=== PATIENT | female | born 1960 | race Caucasian/White ===

== ENCOUNTER 2021-05-04 14:00 | Outpatient (RCR) | payer BC, SELFPAY | END 2021-09-21 12:52 | disposition home or self-care (01) | LOC: HO.PTWFD 14:00 | PROVIDERS: Visit Provider Orthopaedic Surgery | DX: Z96.652 Presence of left artificial knee joint (principal) | CPT/HCPCS: 97110; 97140; 97161 ==

== ENCOUNTER 2021-05-25 14:00 | Outpatient (RCR) | payer BC, SELFPAY ==
[2021-05-25 14:07] VITALS: BP 122/60; PULSE 93; O2SAT 97
== END 2021-09-21 14:17 | disposition home or self-care (01) ==
LOC: HO.PTWFD 14:00
PROVIDERS: Visit Provider Internal Medicine
DX: R42 Dizziness and giddiness (principal)
CPT/HCPCS: 95992; 97161; 97535

== ENCOUNTER 2023-09-24 11:10 | Outpatient (AMB) | payer BC, SELFPAY ==
--- NOTE | 2023-09-24 11:27 | MHC.OFFWIV ---
Intake Vital Signs 09/24/23 11:28 Height 5 ft 2 in Weight 179 lb 6 oz BMI 32.8 BP 130/74 Blood Pressure Location Lt brachial Position Sitting Pulse 70 Pulse Source Pulse Oximeter Pulse Oximetry (%) 95 Oxygen Delivery Method Room Air Intake Visit Reasons: ? thrush Intake Note: patient is here today for possible thrush, symptoms of burning and dry mouth. Patient Tobacco Use Status: Former Tobacco user Information Technology Security Analyst Required: No Neurological Surgery Teacher: Not Required per policy Accompanied by: Self / Same As Patient Allergies acetaminophen [From Vicodin] Adverse Reaction (Intermediate, Verified 09/24/23 12:06) Rash hydrocodone [From Vicodin] Adverse Reaction (Intermediate, Verified 09/24/23 12:06) Rash Medication List - Last Reconciled 09/24/23 by Liza Garces, MAINTENANCE SUPERVISOR [employer]LECT[employer]ICAL- albuterol 90 mcg/actuation mcg inhalation PRN amoxicillin-pot clavulanate 500-125 mg (Augmentin) 1 tab PO Q12H 10 days levothyroxine (Synthroid) 150 mcg PO DAILY mometasone 50 mcg/actuation (Asmanex HFA) inhalation DAILY sertraline 50 mg PO DAILY trazodone 100 mg PO BEDTIME PRN Do you need a note to return to daycare/school/sports/work: No HPI HPI Comments History of Present Illness Details here today w co sore throat and concern for thrush Reports she Took Amox prior to dental procedure a few days ago, 24 hours later developed a sore throat, cold sores and tongue looks like a rotten strawberry. initial painful swallowing but this has improved exposed to dtr and grandchild with + strep uses ICS QD denies fever, chills, PFSH Social History Patient Tobacco Use Status: Former Tobacco user Review of Systems Const All systems reviewed & are unremarkable except as noted in HPI and below Physical Exam Vital Signs: Last Vital Signs Pulse 70 09/24/23 11:28 BP 130/74 09/24/23 11:28 Pulse Ox 95 09/24/23 11:28 Oxygen Delivery Method Room Air 09/24/23 11:28 BMI result Body Mass Index 32.8 Const Other: awake alert NAD Speaking in full sentences Pharynx + erythema, no exudate or halitosis. Tongue w/ brownish coating, fissure, erythematous , glossy patches Results AMB Rapid Strep AMB Rapid Strep Positive Last Edit by Clarisa Lepe CMA on 09/24/23 12:22 Assessment & Plan Assessment & Plan (1) Strep pharyngitis: Code(s): J02.0 - Streptococcal pharyngitis Orders: Orders AMB Rapid Strep Screen Today J02.9 - Acute pharyngitis, unspecified Medications: New amoxicillin-pot clavulanate 875-125 mg 1 tab PO BID 7 days 14 tabs 0RF Coding Level of Care Code Est Pt Level 3 (90205) Diagnoses Strep pharyngitis J02.0
[2023-09-24 11:28] VITALS: BP 130/74; PULSE 70; O2SAT 95; BMI 32.8
== END 2023-09-24 12:36 | disposition home or self-care (01) ==
PROVIDERS: PCP Internal Medicine; Visit Provider Nurse Practitioner Family
DX: J02.0 Streptococcal pharyngitis (principal); J02.9 Acute pharyngitis, unspecified
CPT/HCPCS: 87880; 99213